=== PATIENT | female | born 1965 | race Caucasian/White ===

== ENCOUNTER → 2017-07-06 | Outpatient (CLI) | payer BC ==
--- NOTE | 2017-07-06 11:41 | RAD ---
CT abdomen/pelvis without contrast 07/06/2017 at 1024 hours Indication: Bilateral flank pain Comparison: None available Technique: Multiple axial CT images of the abdomen and pelvis were obtained without intravenous contrast. Coronal sagittal reformats are provided. Findings: The visualized lung bases are clear. Heart size is within normal limits. Evaluation of solid abdominal viscera is limited by lack of intravenous contrast. The liver, spleen, bilateral adrenal glands and pancreas are within normal limits. Gallbladder surgically absent. Abdominal aorta is normal in course and caliber. There are no enlarged lymph nodes in the abdomen or pelvis. There is no abdominal free air. There is no free fluid within the abdomen or pelvis. There is a 5 mm calculus at the right ureterovesicular junction with associated moderate right hydroureteronephrosis and right-sided perinephric stranding. Left kidney appears normal. No left-sided hydronephrosis. Small and large bowel are normal in caliber. No evidence of bowel obstruction. Phleboliths are identified within the pelvis. No suspicious osseous lesion is identified. Mild/moderate multilevel degenerative disc disease is identified in the lumbar spine with vacuum disc phenomena at L2-L3, L3-L4, L4-L5 and L5-S1. Impression: There is a 5 mm calculus the right ureterovesicular junction with associated moderate right hydroureteronephrosis and right-sided perinephric stranding. Findings were discussed with Kalin who works with [employer] at 11:39 AM on 07/06/2017. PQRS Compliance Statement: One or more of the following individualized dose reduction techniques were utilized for this examination: 1. Automated exposure control 2. Adjustment of the mA and/or kV according to patient size 3. Use of iterative reconstruction technique
== END | disposition home or self-care (01) ==
LOC: CT 10:12
PROVIDERS: ATTEND Physician Assistant Medical
DX: N20.1 Calculus of ureter (principal); N13.30 Unspecified hydronephrosis
CPT/HCPCS: 74176

== ENCOUNTER → 2018-03-09 | Outpatient (CLI) | payer BC ==
--- NOTE | 2018-03-09 10:03 | RAD ---
2 view chest 03/09/2018 Clinical indication: Cough, chest heaviness. Comparison: None. Findings: Cardiac and mediastinal silhouettes are unremarkable. No pleural effusion, pneumothorax or focal consolidation. There is mild right basilar atelectasis. Multilevel thoracic spondylosis. Impression: Mild right basilar atelectasis without acute cardiopulmonary abnormality.
--- NOTE | 2018-03-09 10:04 | RAD ---
3 views right shoulder 03/09/2018 Clinical indication: Fall with right shoulder pain. Comparison: None. Findings: No acute fracture or traumatic malalignment. Joint space is maintained. The periarticular soft tissues are unremarkable. Impression: No acute osseous abnormality.
== END | disposition home or self-care (01) ==
LOC: PMG 07:32
PROVIDERS: ATTEND Physician Assistant Medical
DX: M47.894 Other spondylosis, thoracic region (principal); M25.511 Pain in right shoulder
CPT/HCPCS: 71046; 73030